=== PATIENT | female | born 1975 | race Caucasian/White ===

== ENCOUNTER 2016-06-26 14:13 | Emergency (ER) | payer BC ==
[~2016-06-26] VITALS: Ht 177.8 cm; Wt 82.0 kg
[~2016-06-26 14:13] MED LIST: CLONIDINE HCL0.1 MG PO; NOHOMEMEDS; TRAMADOL HCL50 MG PO
[2016-06-26 14:42] VITALS: BP 157/101
== END 2016-06-26 16:32 | disposition left against medical advice (07) ==
LOC: EME 14:13
DX: R07.9 Chest pain, unspecified (principal); Z73.3 Stress, not elsewhere classified; Z53.21 Procedure and treatment not carried out due to patient leaving prior to being seen by health care provider
CPT/HCPCS: 93005; 99281; 99284

== ENCOUNTER 2017-11-02 13:54 | Observation (INO) | payer BC ==
[~2017-11-02] VITALS: Ht 175.3 cm; Wt 88.0 kg
[2017-11-02 15:14] LABS: BASOPHIL (%) 0.6 % (0-1); EOSINOPHIL (%) 2.2 % (0-5); EOSINOPHIL COUNT 0.2 K/uL (0-0.3); HEMATOCRIT 36.8 % (36.0-46.0); HEMOGLOBIN 12.7 G/DL (11.9-15.5); IMMATURE GRANULOCYTE (%) 0.3 % (0.0-0.7); LYMPHOCYTE (%) 39.3 % (15-42); LYMPHOCYTE COUNT 2.8 K/uL (1.0-2.8); MCH 33.2 PG (29.0-34.0); MCHC 34.5 G/DL (30.0-36.0); MCV 96.1 FL (83-99); MONOCYTE (%) 4.5 % (3-12); MONOCYTE COUNT 0.3 K/uL (0-0.8); NEUTROPHIL (%) 53.1 % (45-76); NEUTROPHIL COUNT 3.8 K/uL (1.8-6.4); PLATELET COUNT 319 K/uL (156-360); RBC DIS.WIDTH-CV 16.3 % (11.8-14.6); RBC DIS.WIDTH-SD 58.2 % (39-53); RED BLOOD COUNT 3.83 M/uL (3.80-5.20); WHITE BLOOD COUNT 7.2 K/uL (4.1-10.2)
[2017-11-02 15:19] LABS: INTER. NORMALIZED RATIO 1.1
[2017-11-02 15:36] LABS: CHLORIDE 105 mEq/L (99-109); POTASSIUM 4.2 mEq/L (3.7-5.4); SODIUM 136 mEq/L (136-147)
[2017-11-02 15:39] LABS: GLUCOSE 110 mg/dL (70-99); TOTAL PROTEIN 7.3 g/dL (6.4-8.3)
[2017-11-02 15:41] LABS: TOTAL BILIRUBIN 0.4 mg/dL (0.0-1.0)
[2017-11-02 15:42] LABS: ALKALINE PHOSPHATASE 69 IU/L (3-129); CREATININE 0.9 mg/dL (0.6-1.3); GFR ESTIMATE (CALCULATED) > 59 mL/min/
[2017-11-02 15:43] LABS: UREA NITROGEN (BUN) 9 mg/dL (9-23)
[2017-11-02 15:44] LABS: AST (GOT) 14 IU/L (2-34)
[2017-11-02 15:45] LABS: ALT (GPT) 13 IU/L (3-49)
[2017-11-02] MEDS ORDERED: OXYCODONE-APAP1 EACH PO (18:05)
[2017-11-02] MEDS ORDERED: XANAX0.25 MG PO (18:05)
[2017-11-02] MEDS ORDERED: ALPRAZOLAM0.25 M2 PO (18:05)
[2017-11-02] MEDS ORDERED: ESCITALOPRAM OX10 MG PO (18:06)
[2017-11-02] MEDS ORDERED: ATORVASTATIN CA40 MG PO (18:06)
[2017-11-02] MEDS ORDERED: CHLORZOXAZONE500 MG PO (18:06)
[2017-11-02] MEDS ORDERED: VALSARTAN80 MG PO (18:06)
[2017-11-02] MEDS ORDERED: MELOXICAM15 MG PO (18:06)
[2017-11-02] MEDS ORDERED: ERGOCALCIF50000 UNIT PO (18:07)
[2017-11-02] MEDS ORDERED: CYANOCOBAL1000 MCG/2 IM (18:07)
[2017-11-02] MEDS ORDERED: PERCOCET 10/1 TABLET PO (20:43)
[2017-11-02] MEDS ORDERED: ONDANSETRON HCL8 MG PO (20:43)
[2017-11-02] MEDS ORDERED: COLACE100 MG PO (20:43)
[2017-11-02 22:47] VITALS: BP 140/76
[2017-11-03 03:59] VITALS: BP 146/79
[2017-11-03 06:49] LABS: HEMATOCRIT 34.9 % (36.0-46.0); HEMOGLOBIN 11.8 G/DL (11.9-15.5); MCH 33.1 PG (29.0-34.0); MCHC 33.8 G/DL (30.0-36.0); MCV 97.8 FL (83-99); PLATELET COUNT 287 K/uL (156-360); RBC DIS.WIDTH-CV 16.4 % (11.8-14.6); RBC DIS.WIDTH-SD 59.7 % (39-53); RED BLOOD COUNT 3.57 M/uL (3.80-5.20); WHITE BLOOD COUNT 10.4 K/uL (4.1-10.2)
[2017-11-03 07:28] VITALS: BP 135/73
[2017-11-03 07:38] LABS: CHLORIDE 111 MEQ/L (99-109); CREATININE 0.8 MG/DL (0.6-1.3); GFR ESTIMATE (CALCULATED) > 59 mL/min/; GLUCOSE 156 mg/dL (70-99); POTASSIUM 4.8 MEQ/L (3.7-5.4); SODIUM 139 MEQ/L (136-147); UREA NITROGEN (BUN) 8 mg/dL (9-23)
== END 2017-11-03 11:40 | disposition home or self-care (01) ==
LOC: EME 13:54 → EDOF 17:32 → 2EASTP 17:32 → EDOF 17:32 → ENRESERV 17:35 → CANRESERV 17:35 → ENRESERV 17:55 → 2EASTP 21:45
PROVIDERS: Emergency Medicine; Surgery
PROC: 0DTJ4ZZ Resection of Appendix, Percutaneous Endoscopic Approach (ICD-10-PCS; principal; 2017-11-02)
DX: K35.80 Unspecified acute appendicitis (principal); I10 Essential (primary) hypertension; F17.210 Nicotine dependence, cigarettes, uncomplicated; Z87.442 Personal history of urinary calculi
CPT/HCPCS: 80048; 80053; 85025 91; 85027; 85610; 86850; 86900; 86901; 88304; 93005; 99281; 99285; G0378; J0131; J0330; J1100; J1170; J1885; J2250; J2270; J2405; J2543; J2710; J3010; J7050; J7643